=== PATIENT | female | born 1990 | race Hispanic/Latino ===

== ENCOUNTER 2017-09-29 01:07 | Emergency (ER) | payer SELFPAY ==
[~2017-09-29] VITALS: Ht 147.3 cm; Wt 72.6 kg
== END 2017-09-29 01:44 | disposition home or self-care (01) ==
LOC: FSED 01:41
DX: F41.1 Generalized anxiety disorder (principal); F43.0 Acute stress reaction; J45.909 Unspecified asthma, uncomplicated
CPT/HCPCS: 93005; 99282

== ENCOUNTER 2018-10-03 21:34 | Emergency (ER) | payer OTHER ==
[~2018-10-03] VITALS: Ht 147.3 cm; Wt 72.6 kg
[2018-10-04] MEDS ORDERED: DONNATAL/LIDOCAINE/MAALOX 30 ML SUSP PO ONE (01:15)
[2018-10-04] MEDS ORDERED: FAMOTIDINE 20 MG TAB PO ONE ×2 (01:15)
[2018-10-04] MEDS ORDERED: LIDOCAINE VISC 2% SOLN 15 ML UDC ONE (01:19)
[2018-10-04] MEDS ORDERED: MAGNESIUM/ALUMINUM/SIMETHICONE 30 ML UDC ONE (01:19)
[2018-10-04] MEDS ORDERED: BELLADONNA ALK/PHENOBARBITAL 5 ML UDC ONE (01:19)
[2018-10-04 04:34] VITALS: BP 125/83
== END 2018-10-04 02:21 | disposition home or self-care (01) ==
LOC: ER 21:34
DX: R10.13 Epigastric pain (principal); K29.00 Acute gastritis without bleeding; K21.0 Gastro-esophageal reflux disease with esophagitis
CPT/HCPCS: 99284

== ENCOUNTER 2019-03-03 01:33 | Emergency (ER) | payer SELFPAY ==
[~2019-03-03] VITALS: Ht 147.3 cm; Wt 72.6 kg
--- OUTSIDE RECORDS SUMMARY | 2019-03-03 01:36 | XMS REPORT ---
[facility] Address Unknown Phone Unavailable Care Team Providers Care Trading Manager Name Role Phone Unavailable Unavailable Payers Payer Name Policy Type Policy Number Effective Date Expiration Date Problems This patient has no known problems. Allergies, Adverse Reactions, Alerts Allergy Name Allergy Type Status Severity Reaction(s) Onset Date Inactive Date Treating Clinician Comments aspirin DA Active SV 2018-12-12 00:00:00 aspirin DA Active SV 2018-08-31 00:00:00 caffeine DA Active U 2017-09-26 00:00:00 aspirin DA Active U 2017-09-26 00:00:00 Medications This patient has no known medications. Results Test Description Test Time Test Comments Text Results Atomic Results Result Comments CBC W/AUTO DIFF 2018-09-03 05:52:00 WHITE BLOOD CELL (test code=WBC) 9.7 K/mm3 4.5-12.5 RED BLOOD CELL (test code=RBC) 3.63 mill/mm3 3.7-5.2 HEMOGLOBIN (test code=HGB) 9.4 gram/dL 11.5-15.5 HEMATOCRIT (test code=HCT) 31.1 % 36.0-46.0 MEAN CELL VOLUME (test code=MCV) 85.7 fL 80-98 MEAN CELL HGB (test code=MCH) 25.9 picogram 27.0-33.0 MEAN CELL HGB CONCETRATION (test code=MCHC) 30.2 gram/dL 33.0-36.0 RED CELL DISTRIBUTION WIDTH (test code=RDW) 14.0 % 11.6-16.2 RED CELL DISTRIBUTION WIDTH SD (test code=RDW-SD) 43.4 fL 37.0-51.0 PLATELET COUNT (test code=PLT) 147 K/mm3 150-450 MEAN PLATELET VOLUME (test code=MPV) 10.0 fL 6.7-11.0 NEUTROPHIL % (test code=NT%) 63.8 % 39.0-69.0 IMMATURE GRANULOCYTE % (test code=IG%) 2.9 % 0.0-5.0 LYMPHOCYTE % (test code=LY%) 19.6 % 25.0-55.0 MONOCYTE % (test code=MO%) 11.4 % 0.0-10.0 EOSINOPHIL % (test code=EO%) 1.9 % 0.0-5.0 BASOPHIL % (test code=BA%) 0.4 % 0.0-1.0 NUCLEATED RBC % (test code=NRBC%) 0.2 % 0-0 NEUTROPHIL # (test code=NT#) 6.17 K/mm3 1.8-7.7 IMMATURE GRANULOCYTE # (test code=IG#) 0.28 x10 3/uL 0-0.03 LYMPHOCYTE # (test code=LY#) 1.90 K/mm3 1.0-5.0 MONOCYTE # (test code=MO#) 1.10 K/mm3 0-0.8 EOSINOPHIL # (test code=EO#) 0.18 K/mm3 0.0-0.5 BASOPHIL # (test code=BA#) 0.04 K/mm3 0.0-0.2 NUCLEATED RBC # (test code=NRBC#) 0.02 K/mm3 0.0-0.1 FALLOPIAN [id number] 13:47:00 RUN DATE: 09/02/18 [place] PAGE 1 RUN TIME: 1347 Specimen Inqui ry RUN USER: INTERFACE PATIENT: NELI MORSE ACCT #: [id number] [facility] [place] [facility] #: [id number] AGE/SX: 28/F ROOM: 2003 RE08/31/18REG DR: Roger Schaefer MD : 89 BED: A DIS: STATUS: ADM IN TLOC: SPEC #: [id number] RECD: 09/01/18 STATUS: ANTONY RE #: [id number] MILDRED: 08/31/18- [facility] DR: Roger Schaefer MD ENTERED: 09/01/18 SP TYPE: FALL TUBE OTHR DR: ORDERED: GROSS PROCEDURES: GROSS (09/02/18-1123) TISSUES: 1. FALLOPIAN TUBE, NOS - RIGHT 2. FALLOPIAN TUBE, NOS - LEFT CLINICAL HISTORY COLLECTION DATE: 08/31/18 MULTIPARITY FOR SCHEDULED REPEAT SECTION, DESIRING BILATERAL TUBAL LIGATION FINAL D IAGNOSIS Right and left fallopian tubes (specimens 1 and 2), segmental r esection: COMPLETELY TRANSECTED FALLOPIAN TUBES X 2 NO SIGNIFICANT PATHOLOGIC ALTERATION RRB/sm D [phone] MACROSCOPIC The first specimen is received in formalin, labeled with the patient's name and identified as "right fallopian tube segment" and consists of a segment of a pink-day non-fimbriated fallopian tube measuring 0.8 cm in length by cm in diameter. Samples are submitted for microscopic examinat ion in cassette (1). The second specimen is received in formalin, labeled with the patient's name and identified as "left fallopian tube segment" and co nsists of a neves segment of fallopian tube measuring 0.3 cm in aggregate, are s ubmitted for microscopic examination in cassette (2). GROSS PERFORMED AT [facility] [address] [place] [id number] CONTINUED ON NEXT PAGE --RUN DATE: 09/02/18 [facility] PAGE 2 RUN TIME: 1347 Specimen Inquiry RUN USER: INTERFACE SPEC #: [id number] PATIENT: NELI MORSE #[id number] (Continued) MACROSCOPIC (Continued) (P)[phone] MICROSCOPIC MICROSCOPIC PERFORMED AT [facility] All of the stains, including any controls performed, stain appropriately. [facility] [address] [place] [address] , [place] [address] (P)[phone] PERFORMING SITE Diagnosis performed at: [facility], [place] [address] [facility], [place] [id number] Signed SIGNATURE ON FILE Dre Desai 09/02/18 1347 END OF REPORT
== END 2019-03-03 01:51 | disposition left against medical advice (07) ==
LOC: FSED 01:33
DX: T14.8XXA Other injury of unspecified body region, initial encounter (principal)

== ENCOUNTER 2022-05-31 04:10 | Emergency (ER) | payer BC, OTHER ==
[~2022-05-31] VITALS: Ht 147.3 cm; Wt 81.6 kg
[2022-05-31] MEDS ORDERED: METHYLPREDNISOLONE SOD SUCC 125 MG/2ML VIAL IV ONE (04:30)
[2022-05-31] MEDS ORDERED: ALBUTEROL/IPRATROPIUM 3 ML NEB NEB ONE (04:30)
[2022-05-31] MEDS ORDERED: METHYLPREDNISOLONE SOD SUCC 125 MG/2ML VIAL ONE (04:36)
[2022-05-31] MEDS ORDERED: ALBUTEROL/IPRATROPIUM 3 ML NEB ONE (04:37)
[2022-05-31] MEDS ORDERED: PREDNISONE50 MG PO (04:44)
[2022-05-31] MEDS ORDERED: VENTOLIN HFA18 GM INH (04:44)
== END 2022-05-31 05:10 | disposition home or self-care (01) ==
LOC: FSED 04:24
DX: R05.9 Cough, unspecified (principal); J45.901 Unspecified asthma with (acute) exacerbation
CPT/HCPCS: 99283; J2930